=== PATIENT | female | born 1965 | race Hispanic/Latino ===

== ENCOUNTER → 2017-07-12 | Day surgery (SDC) | payer BC ==
[~2017-07-12] MED LIST: LIDOCAINE 1% MPF 5 ML VIAL ONE; NA CHLORIDE 0.9% 1,000 ML ONE; PROPOFOL 200 MG/20 ML VIAL IV ONE
--- OUTSIDE RECORDS SUMMARY | 2017-07-12 07:15 | XMS REPORT ---
:1965 Author Organization e[employer] Care Team Providers Name Role Phone Bhargav Roby Provider Role Unavailable Allergies No Known Allergies Problems Problem Type Condition Code Onset Dates Condition Status Assessment Encounter for screening mammogram Z12.31 Active for breast cancer Assessment Hyperlipidemia, mixed E78.2 Active Assessment Colon cancer screening Z12.11 Active Problem Diabetes type 2, uncontrolled E11.65 Active Problem Hyperlipidemia, mixed E78.2 Active Problem Hypertension I10 Active Assessment Diabetes type 2, uncontrolled E11.65 Active Assessment Hypertension I10 Active Problem Subclinical iodine-deficiency E02 Active hypothyroidism Assessment Encounter for preventative adult Z00.01 Active health care exam with abnormal findings Medications Medication Code Code Instructions Start End Status Dosage System Date Date Tanzeum [facility] 49774419084 30 MG Inactive not defined Subcutaneous Victoza [facility] 81766459145 18 MG/3ML September Active inject as Subcutaneous 05, directed once a day 2018 Enalapril [facility] 16663176988 20 MG Orally Active 1 tablet Maleate Once a day Lipitor ND 10053099628 20 MG Orally Active 1 tablet Once a day Jardiance [facility] 92199906816 25 MG Orally Active 1 tablet Once a day Metformin HCl [facility] 14637834659 1000 MG Orally Active 1 tablet Twice a day with meals Results No Known Results Summary Purpose eClinicalWorks Submission
--- OUTSIDE RECORDS SUMMARY | 2017-07-12 07:15 | XMS REPORT ---
:1965 Author Organization e[employer]Works Care Team Providers Name Role Phone Kwaku Seth Provider Role Unavailable Allergies, Adverse Reactions, Alerts Substance Reaction Event Type N.K.D.A. Info Not Available Non Drug Allergy Problems Problem Type Condition Code Onset Dates Condition Status Problem Diabetes type 2, uncontrolled E11.65 Active Problem Hyperlipidemia, mixed E78.2 Active Problem Hypertension I10 Active Problem Subclinical iodine-deficiency E02 Active hypothyroidism Assessment Encounter for screening colonoscopy Z12.11 Active Medications Medication Code Code Instructions Start End Status Dosage System Date Date Lipitor [facility] 06519596855 20 MG Orally Active 1 tablet Once a day Victoza [facility] 53774927061 18 MG/3ML September Active inject as Subcutaneous 05, directed once a day 2017 Metformin HCl [facility] 44121932847 1000 MG Orally Active 1 tablet Twice a day with meals Enalapril [facility] 78789254008 20 MG Orally Active 1 tablet Maleate Once a day Jardiance [facility] 01748511700 25 MG Orally Active 1 tablet Once a day Results No Known Results Summary Purpose eClinicalWorks Submission
--- NOTE | 2017-07-12 08:47 | ENDO RPT ---
[address], [address] COLONOSCOPY PROCEDURE REPORT EXAM DATE: 07/12/2017 PATIENT NAME: Sana Rojas MR #: [id number] BIRTHDATE: 1965 ATTENDING: Kwaku Seth DR STATUS: outpatient HARBOR PILOT: Viri Stark RN and Lin Tadeo INDICATIONS: The patient is a 51 yr old Female here for a colonoscopy due to colon cancer screening PROCEDURE PERFORMED: Screening Colonoscopy and Colonoscopy MEDICATIONS: Per Anesthesia. ESTIMATED BLOOD LOSS: None CONSENT: The patient understands the risks and benefits of the procedure and understands that these risks include, but are not limited to: sedation, allergic reaction, infection, perforation and/or bleeding. Alternative means of evaluation and treatment include, among others: physical exam, x-rays, and/or surgical intervention. The patient elects to proceed with this endoscopic procedure. DESCRIPTION OF PROCEDURE: During intra-op preparation period all mechanical medical equipment was checked for proper function. Hand hygiene and appropriate measures for infection prevention was taken. Procedure, possible complications, alternatives including, but not limited to possibility of bleeding, perforation, tear, infection, sepsis, need for surgery, need for blood transfusion, were explained to the patient. After the risks, benefits and alternatives of the procedure were thoroughly explained, Informed consent was verified, confirmed and timeout was successfully executed by the treatment team. The patient was placed in the left lateral position. A digital rectal exam was performed and revealed internal hemorrhoids. After appropriate level of anesthesia, the scope was passed. The [id number] ([id number]) endoscope was introduced through the anus and advanced to the cecum, which was identified by both the appendix and ileocecal valve. The quality of the prep was poor. The instrument was then slowly withdrawn as the colon was fully examined. Scope withdrawal time was 10 minutes. COLON FINDINGS: A normal appearing cecum, ileocecal valve, and appendiceal orifice were identified. the ascending, transverse, descending, sigmoid colon, and rectum appeared unremarkable. Retroflexed views revealed no abnormalities. The scope was then completely withdrawn from the patient and the procedure terminated. ADVERSE EVENTS: There were no complications. IMPRESSIONS: A normal appearing cecum, ileocecal valve, and appendiceal orifice were identified. the ascending, transverse, descending, sigmoid colon, and rectum appeared unremarkable RECOMMENDATIONS: 1. fiber rich diet 2. hemorrhoidal hygiene RECALL: Return in 5 year(s) for Colonoscopy. Poor Prep - 2 Day prep on next colonoscopy Kwaku Seth DR eSigned: Kwaku Seth DR 07/12/2017 8:46 AM cc: CPT CODES: ICD9 CODES: PATIENT NAME: Sana Rojas MR#: [id number]
== END | disposition home or self-care (01) ==
LOC: OR 07:13
PROVIDERS: ATTEND Surgery
PROC: 0DJD8ZZ Inspection of Lower Intestinal Tract, Via Natural or Artificial Opening Endoscopic (ICD-10-PCS; principal; 2017-07-12 08:30)
DX: Z12.11 Encounter for screening for malignant neoplasm of colon (principal); K64.8 Other hemorrhoids; E11.9 Type 2 diabetes mellitus without complications; I10 Essential (primary) hypertension; E02 Subclinical iodine-deficiency hypothyroidism; E78.2 Mixed hyperlipidemia; Z90.710 Acquired absence of both cervix and uterus; Z83.3 Family history of diabetes mellitus; Z82.49 Family history of ischemic heart disease and other diseases of the circulatory system
CPT/HCPCS: 82962; J7030